=== PATIENT | female | born 1990 | race American Indian/Alaskan Native ===

== ENCOUNTER 2017-04-21 14:02 | Outpatient (CLI) | payer OTHER | END 2017-04-21 14:48 | disposition home or self-care (01) | LOC: NST 14:02 | DX: Z34.83 Encounter for supervision of other normal pregnancy, third trimester (principal) ==

== ENCOUNTER 2017-05-23 21:18 | Inpatient (IN) | payer OTHER ==
[~2017-05-23] VITALS: Ht 160 cm; Wt 59.0 kg
[2017-05-23] MEDS ORDERED: PRENATABS RX T1 EACH (21:52)
== END 2017-05-26 11:56 | DRG 775 ==
LOC: LDR 21:18 → OB/GYN 21:18
PROC: 4A1HXCZ Monitoring of Products of Conception, Cardiac Rate, External Approach (ICD-10-PCS; 2017-05-23)
PROC: 0DQR0ZZ Repair Anal Sphincter, Open Approach (ICD-10-PCS; principal; 2017-05-24)
PROC: 0W8NXZZ Division of Female Perineum, External Approach (ICD-10-PCS; 2017-05-24)
PROC: 10E0XZZ Delivery of Products of Conception, External Approach (ICD-10-PCS; 2017-05-24)
DX: O70.20 Third degree perineal laceration during delivery, unspecified (principal); O69.81X0 Labor and delivery complicated by cord around neck, without compression, not applicable or unspecified; Z3A.37 37 weeks gestation of pregnancy; Z37.0 Single live birth

== ENCOUNTER 2021-10-25 08:12 | Outpatient (CLI) | payer OTHER ==
[~2021-10-25 08:12] MED LIST: PRENATABS RX T1 EACH
== END 2021-10-25 09:30 | disposition home or self-care (01) ==
LOC: PRENATAL 08:12
PROVIDERS: ATTEND Obstetrics & Gynecology Maternal & Fetal Medicine
DX: O35.0XX0 Maternal care for (suspected) central nervous system malformation in fetus, not applicable or unspecified (principal); O35.3XX0 Maternal care for (suspected) damage to fetus from viral disease in mother, not applicable or unspecified; Z3A.19 19 weeks gestation of pregnancy